=== PATIENT | male | born 1990 | race Hispanic/Latino ===

== ENCOUNTER 2021-07-19 09:46 | Emergency (ER) | payer OTHER, SELFPAY | END 2021-07-19 12:13 | disposition home or self-care (01) | LOC: CSHERS 09:46 | DX: S76.312A Strain of muscle, fascia and tendon of the posterior muscle group at thigh level, left thigh, initial encounter (principal); F17.200 Nicotine dependence, unspecified, uncomplicated | CPT/HCPCS: 99283 ==

== ENCOUNTER 2021-07-24 06:33 | Emergency (ER) | payer SELFPAY ==
[2021-07-24] MEDS ORDERED: Morphine 4 MG/ML VIAL ONE ×2 (07:59→10:16)
[2021-07-24] MEDS ORDERED: Ondansetron PF 4 MG/2 ML Vial ONE ×2 (07:59→10:54)
[2021-07-24 08:44] LABS: #Basophils 0.1 10x3/uL (0.0-0.2); #Eosinphils 0.1 10x3/uL (0.0-0.5); #Monocytes 1.1 10x3/uL (0.0-1.1); #Neutrophils 11.5 10x3/uL (1.5-8.4); %Basophils 0.4 % (0.0-2.0); %Eosinophils 0.6 % (0.0-6.0); %Monocytes 7.7 % (0.0-10.0); %Neutrophils 81.9 % (40.0-75.0); Hemoglobin 15.2 g/dL (13.5-17.5); Mean Corpuscular HGB CONC 33.4 g/dL (32.0-36.0); Mean Corpuscular Volume 86.8 fl (81.2-95.1); Mean Platelet Volume 9.7 fl (7.4-10.4); Platelet Count 301 10x3/uL (150-450); RBC Distribution Width 12.5 % (11.5-14.5); Red Blood Cell (RBC) Count 5.24 10x6/uL (4.32-5.72); White Blood Cell (WBC) Count 14.1 10x3/uL (3.5-10.5)
[2021-07-24 09:14] LABS: ALT (SGPT) 15 U/L (8-55); AST (SGOT) 10 U/L (5-34); Albumin 4.1 g/dL (3.5-5.0); Alkaline Phosphatase 67 U/L (40-110); Anion Gap 14 mmol/L (10-20); BUN (Urea Nitrogen) 11 mg/dL (8.9-20.6); Bilirubin, Total 0.9 mg/dL (0.2-1.2); Calc. Creatinine Clearance 0 mL/min (70-130); Calcium 9.3 mg/dL (7.8-10.44); Carbon Dioxide 24 mmol/L (22-29); Chloride 105 mmol/L (98-107); Globulin 3.6 g/dL (2.4-3.5); Glucose 101 mg/dL (70-105); Potassium 3.9 mmol/L (3.5-5.1); Protein, Total 7.7 g/dL (6.0-8.3); Sodium 139 mmol/L (136-145)
[2021-07-24] MEDS ORDERED: Ketorolac Tromethamine 30 MG/ML VIAL ONE (09:40)
[2021-07-24] MEDS ORDERED: Piperacillin/Tazobactam 4.5 GM VIAL ONE (10:16)
[2021-07-24 10:53] LABS: SARS-CoV-2 NAA Rapid Test Not Detected (NotDetected)
[2021-07-24] MEDS ORDERED: Dexamethasone 4 mg/ml Vial ONE (10:54)
[2021-07-24] MEDS ORDERED: Fentanyl 100 MCG/2 ML VIAL ONE ×2 (10:54→12:10)
[2021-07-24] MEDS ORDERED: PROPOFOL 20 ML ONE ×2 (10:54)
[2021-07-24] MEDS ORDERED: Lidocaine 2% PF 5 ML VIAL ONE (10:57)
[2021-07-24] MEDS ORDERED: Midazolam HCl 2 mg/2 ml Vial ONE (11:47)
[2021-07-24] MEDS ORDERED: EPINEPHrine 1 MG/ML AMP ONE (12:04)
[2021-07-24] MEDS ORDERED: Bupivacaine PF 0.5% 30 ML VIAL ONE (12:05)
[2021-07-24] MEDS ORDERED: HYDROcodone/Acetaminophen 5/325 mg Tablet PO PRN ×2 (12:27)
== END 2021-07-24 11:45 | disposition admitted as inpatient to this hospital (09) ==
LOC: CSHERS 06:33
DX: K61.0 Anal abscess (principal); F17.210 Nicotine dependence, cigarettes, uncomplicated; Z20.822 Contact with and (suspected) exposure to COVID-19
CPT/HCPCS: 74177; 80053; 85025; 96365; 96375; 96376; J0171; J1100; J1885; J2001; J2250; J2270; J2405; J2543; J2704; J3010; S0020; U0002

== ENCOUNTER → 2025-05-20 | Day surgery (SDC) | payer OTHER, SELFPAY ==
[2025-05-19 13:02] VITALS: BMI 39.1
[~2025-05-20] MED LIST: Bupivacaine HCl 0.5%/Epinephrine 1:200,000/PF 30 ml Vial ONE; HYDROcodone/Acetaminophen 5/325 mg Tablet ONE; Ketorolac Tromethamine 30 MG (1 mL) VIAL ONE; Lidocaine 1% PF 5 ML VIAL ONE; Lidocaine 2% MPF 10 ML AMP (For Epidural Use) ONE; Ondansetron PF 4 MG/2 ML Vial ONE; PROPOFOL 20 ML ONE; Sevoflurane 250 ML INH ANEST BOTTLE ONE
== END | disposition home or self-care (01) ==
LOC: CSHSDC 05:36
PROVIDERS: ATTEND Surgery
PROC: 0D9Q0ZZ Drainage of Anus, Open Approach (ICD-10-PCS; principal; 2025-05-20)
DX: K61.0 Anal abscess (principal); E66.9 Obesity, unspecified; Z68.39 Body mass index [BMI] 39.0-39.9, adult; Z87.891 Personal history of nicotine dependence
CPT/HCPCS: J1100; J1885; J2250; J2543; J2704; J3010